=== PATIENT | male | born 1945 | race Caucasian/White ===

== ENCOUNTER 2023-03-13 11:29 | Emergency (ER) | payer BC, MEDICARE ==
[2023-03-13 12:16] LABS: #Eosinphils 0.2 thou/uL (0.0-0.7); #Monocytes 0.5 thou/uL (0.11-0.59); #Neutrophils 2.9 thou/uL (1.40-6.50); %Basophils 0.6 % (0.0-1.0); %Eosinophils 4.7 % (0.0-10.0); %Lymphocytes 29.1 % (21.0-51.0); %Neutrophils 56.4 % (42.0-75.0); Hematocrit 43.2 % (42.0-52.0); Hemoglobin 14.9 g/dL (14.0-18.0); Mean Corpuscular HGB CONC 34.5 g/dL (32.0-36.0); Mean Corpuscular Hemoglobin 31.9 pg (27.0-31.0); Mean Corpuscular Volume 92.5 fl (78.0-98.0); Mean Platelet Volume 9.3 fL (7.4-10.4); Platelet Count 190 10x3/uL (130-400); RBC Distribution Width 12.9 % (11.5-14.5); Red Blood Cell (RBC) Count 4.67 mill/uL (4.70-6.10); White Blood Cell (WBC) Count 5.1 10x3/uL (4.8-10.8)
[2023-03-13 12:44] LABS: Troponin I Less than 0.010 ng/mL (< 0.028)
[2023-03-13 12:48] LABS: ALT (SGPT) 12 U/L (8-55); AST (SGOT) 22 U/L (5-34); Albumin 4.1 g/dL (3.4-4.8); Alkaline Phosphatase 57 U/L (40-110); Anion Gap 13 mmol/L (10-20); BUN (Urea Nitrogen) 14 mg/dL (8.4-25.7); Bilirubin, Total 0.4 mg/dL (0.2-1.2); Calc. Creatinine Clearance 0 mL/min (70-130); Calcium 9.2 mg/dL (7.8-10.44); Carbon Dioxide 25 mmol/L (23-31); Chloride 104 mmol/L (98-107); Estimated GFR 74; Glucose 100 mg/dL (83-110); Potassium 4.4 mmol/L (3.5-5.1); Protein, Total 7.1 g/dL (5.8-8.1); Sodium 138 mmol/L (136-145)
== END 2023-03-13 13:50 | disposition home or self-care (01) ==
LOC: ERS 11:29
DX: R07.9 Chest pain, unspecified (principal)
CPT/HCPCS: 71046; 80053; 84484; 85025; 85379; 93005

== ENCOUNTER 2023-04-19 11:43 | Inpatient (IN) | payer BC, MEDICARE ==
[2023-04-22] MEDS ORDERED: PHENYLEPHRINE-NS 100 MCG/ML 10 ML SYRINGE ONE (06:40)
[2023-04-22] MEDS ORDERED: Bupivacaine PF 0.5% 30 ML VIAL ONE (06:40)
[2023-04-22] MEDS ORDERED: Dexamethasone 4 mg/ml Vial ONE (06:40)
[2023-04-22] MEDS ORDERED: Albumin 5% 500 ML ONE (06:40)
[2023-04-22] MEDS ORDERED: EPINEPHrine 1 MG/ML AMP ONE (06:40)
[2023-04-22] MEDS ORDERED: Fentanyl 250 MCG/5 ML VIAL ONE (06:42)
[2023-04-22] MEDS ORDERED: Midazolam HCl 2 mg/2 ml Vial ONE ×2 (06:42)
[2023-04-22] MEDS ORDERED: Rocuronium Bromide 50 MG/5 ML VIAL ONE (06:43)
[2023-04-22] MEDS ORDERED: Aminocaproic Acid 5 GM/20 ML VIAL ONE ×2 (06:43→07:41)
[2023-04-22] MEDS ORDERED: Vasopressin 20 UNITS/ML VIAL ONE (06:43)
[2023-04-22] MEDS ORDERED: Insulin Regular 300 UNITS/3 ML VIAL ONE (06:43)
[2023-04-22] MEDS ORDERED: Norepinephrine 4 MG/4 ML VIAL ONE (06:43)
[2023-04-22] MEDS ORDERED: Heparin 10,000 UNITS/1 ML VIAL 30,000 UNITS in Sodium Chloride 0.9% 1,000 ML FS SCH (07:00)
[2023-04-22] MEDS ORDERED: Clindamycin/D5W 600 mg/50 ml Premix Bag ONE (07:08)
[2023-04-22] MEDS ORDERED: Vancomycin 1 GM/200 ML (FROZEN) BAG ONE (07:08)
[2023-04-22] MEDS ORDERED: Sodium Chloride 0.9% 100 ML ONE (07:28)
[2023-04-22] MEDS ORDERED: CEFAZOLIN 2 GM VIAL ONE (07:28)
[2023-04-22] MEDS ORDERED: PROPOFOL 200 MG/20 ML VIAL ONE (07:41)
[2023-04-22] MEDS ORDERED: Magnesium 5 GM/10 ML VIAL ONE (07:41)
[2023-04-22] MEDS ORDERED: Protamine Sulfate 250 MG/25 ML VIAL ONE (07:41)
[2023-04-22] MEDS ORDERED: Heparin 5,000 UNITS/ML VIAL ONE (07:41)
[2023-04-22] MEDS ORDERED: Rocuronium Bromide 10 MG/ML (10ML VIAL) ONE (07:41)
[2023-04-22] MEDS ORDERED: Heparin 30,000 units/30 ml VIAL ONE (07:41)
[2023-04-22] MEDS ORDERED: Cardioplegic Soln 1,000 ML BAG ONE (07:41)
[2023-04-22] MEDS ORDERED: Potassium Chloride 60 MEQ/30 ML VIAL ONE (07:41)
[2023-04-22] MEDS ORDERED: Lidocaine 1% PF 5 ML VIAL ONE (07:41)
[2023-04-22] MEDS ORDERED: Sodium Bicarb 50 MEQ/50 ML VIAL ONE (07:41)
[2023-04-22] MEDS ORDERED: Mannitol 12.5 GM/50 ML ONE (07:41)
[2023-04-22] MEDS ORDERED: Lidocaine 2% PF 100 mg/5 ml Syringe ONE (07:41)
[2023-04-22] MEDS ORDERED: Thrombin 5000 UNITS/5 ML VIAL ONE (07:41)
[2023-04-22] MEDS ORDERED: Papaverine 60 MG/2 ML VIAL ONE (07:41)
[2023-04-22] MEDS ORDERED: Vancomycin 1 GM VIAL ONE (07:41)
[2023-04-22] MEDS ORDERED: Calcium Chloride 1 GM/10 ML Abboject SYRINGE ONE (07:41)
[2023-04-22] MEDS ORDERED: Isoflurane INH ANEST 100 ML BOTTLE ONE (08:20)
[2023-04-22] MEDS ORDERED: traMADol HCl 50 MG TAB PO PRN (10:21)
[2023-04-22] MEDS ORDERED: Morphine 2 MG/ML VIAL SLOW IVP PRN (10:21)
[2023-04-22] MEDS ORDERED: fentaNYL 50 mcg/mL 1 mL Vial SLOW IVP PRN (10:21)
[2023-04-22] MEDS ORDERED: Nitroglycerin 50 MG/250 ML BOT 250 ML IVPB PRN (10:21)
[2023-04-22] MEDS ORDERED: hydrALAZINE 20 MG/ML VIAL SLOW IVP PRN (10:21)
[2023-04-22] MEDS ORDERED: Bisacodyl 5 MG TAB PO PRN (10:21)
[2023-04-22] MEDS ORDERED: Hetastarch 6% 500 ML 500 ML IVPB PRN (10:21)
[2023-04-22] MEDS ORDERED: Bisacodyl 10 MG SUPP PR PRN (10:21)
[2023-04-22] MEDS ORDERED: NOREPINEPHRINE 8 MG/250 ML-D5W 250 ML IVPB PRN (10:21)
[2023-04-22] MEDS ORDERED: Ipratropium/Albuterol 3 ML NEB NEB PRN (10:21)
[2023-04-22] MEDS ORDERED: Promethazine HCl 25 MG/ML VIAL IM PRN (10:21)
[2023-04-22] MEDS ORDERED: Guaifenesin DM 100-10/5 ML UDCUP PO PRN (10:21)
[2023-04-22] MEDS ORDERED: Dextrose 50% Abboject 50 ML SYRINGE SLOW IVP PRN (10:30)
[2023-04-22] MEDS ORDERED: D5 1/2 NS w/20 mEq KCL 1,000 ML IV SCH (10:30)
[2023-04-22] MEDS ORDERED: Magnesium 2 GM/50 ML(in water) 2 GM in Premix Bag 1 BAG IVPB SCH (10:30)
[2023-04-22] MEDS ORDERED: Dextrose 5% in Water 1,000 ML IV PRN (10:30)
[2023-04-22] MEDS ORDERED: HUMULIN R 100 UNITS in Sodium Chloride 0.9% 100 ML IVPB SCH (10:30)
[2023-04-22] MEDS ORDERED: Glucagon 1 MG/ML KIT SC PRN (10:30)
[2023-04-22 10:51] LABS: #Basophils 0.1 thou/uL (0.0-0.2); #Eosinphils 0.5 thou/uL (0.0-0.7); #Neutrophils 12.1 thou/uL (1.40-6.50); %Basophils 0.3 % (0.0-1.0); %Eosinophils 2.8 % (0.0-10.0); %Lymphocytes 16.9 % (21.0-51.0); %Neutrophils 72.1 % (42.0-75.0); Hematocrit 34.6 % (42.0-52.0); Mean Corpuscular HGB CONC 34.7 g/dL (32.0-36.0); Mean Corpuscular Hemoglobin 32.2 pg (27.0-31.0); Mean Corpuscular Volume 92.8 fl (78.0-98.0); Mean Platelet Volume 9.3 fL (7.4-10.4); Platelet Count 150 10x3/uL (130-400); RBC Distribution Width 12.9 % (11.5-14.5); Red Blood Cell (RBC) Count 3.73 mill/uL (4.70-6.10); White Blood Cell (WBC) Count 16.7 10x3/uL (4.8-10.8)
[2023-04-22 11:08] LABS: Base Excess (BEa) -5.4 mEq/L (-2.0 to +3.0); CO2 Tension 33.7 mmHg (35.0-45.0); Calcium, Ionized (arterial) 1.03 mmol/L (1.12-1.30); Carboxyhemoglobin (COHb) 0.2 gm% (0.0-3.0); Hematocrit-ABG 36 % (42.0-52.0); Hemoglobin (Hb) 12.3 g/dL (14.0-18.0); O2 Tension (PaO2), arterial 190.6 mmHg (> 70.0); Potassium - ABG Lab 3.34 mmol/L (3.70-5.30); pH, Arterial 7.369 (7.35-7.45)
[2023-04-22 11:10] LABS: INR-International Normal Ratio 1.6; Prothrombin Time 20.1 sec (12.0-14.7)
[2023-04-22 11:10] LABS: Puncture Site ALINE
[2023-04-22 11:11] LABS: ALV-art Gradient 123.775 mmHg (0-20)
[2023-04-22 11:11] LABS: PTT 35.7 sec (22.9-36.1)
[2023-04-22] MEDS: Ketorolac Tromethamine 30 MG/ML VIAL IVP SCH ×2 (11:23→17:40)
[2023-04-22] MEDS: Insulin Regular 300 UNITS/3 ML VIAL SC PRN ×3 (12:03→20:36)
[2023-04-22 12:19] LABS: Anion Gap 15 mmol/L (10-20); BUN (Urea Nitrogen) 15 mg/dL (8.4-25.7); Calc. Creatinine Clearance 66 mL/min (70-130); Calcium 7.4 mg/dL (7.8-10.44); Carbon Dioxide 19 mmol/L (23-31); Chloride 109 mmol/L (98-107); Estimated GFR 90; Glucose 171 mg/dL (83-110); Potassium 3.4 mmol/L (3.5-5.1); Sodium 140 mmol/L (136-145)
[2023-04-22] MEDS: Potassium Chloride 20 MEQ/100 ML PREMIX BAG IVPB PRN ×2 (12:27→17:36)
[2023-04-22] MEDS ORDERED: FLU VACC QS2023(65UP)/MF59C/PF 60 MCG/0.5 ML SYRINGE IM ONE (15:00)
[2023-04-22] MEDS: Ondansetron PF 4 MG/2 ML Vial IVP PRN (15:16)
[2023-04-22] MEDS: CEFAZOLIN 2 GM in Sodium Chloride 0.9% 100 ML IVPB SCH (15:22)
[2023-04-22 16:33] LABS: Actual Bicarbonate (HCO3a) 20.6 mEq/L (22-28); Base Excess (BEa) -5.3 mEq/L (-2.0 to +3.0); CO2 Tension 41.6 mmHg (35.0-45.0); Calcium, Ionized (arterial) 1.12 mmol/L (1.12-1.30); Carboxyhemoglobin (COHb) 0.1 gm% (0.0-3.0); Hematocrit-ABG 37 % (42.0-52.0); Hemoglobin (Hb) 12.6 g/dL (14.0-18.0); O2 Tension (PaO2), arterial 151.4 mmHg (> 70.0); Potassium - ABG Lab 3.62 mmol/L (3.70-5.30); pH, Arterial 7.312 (7.35-7.45)
[2023-04-22 16:36] LABS: Hemoglobin 12.2 g/dL (14.0-18.0)
[2023-04-22 16:44] LABS: Puncture Site ALINE
[2023-04-22 16:50] LABS: Potassium 3.5 mmol/L (3.5-5.1)
[2023-04-22] MEDS: Mag-Al 1200 mg/1200 mg/30 ML UDCUP PO PRN (17:39)
[2023-04-22] MEDS: Acetaminophen 325 MG TAB PO PRN (20:02)
[2023-04-22] MEDS: Atorvastatin Calcium 20 MG TAB PO SCH (20:02)
[2023-04-22] MEDS: Famotidine/PF 20 mg/2ml Vial SLOW IVP SCH (20:03)
[2023-04-22] MEDS: NS 0.9% w/ 20 MEQ KCL 1,000 ML IV SCH (21:13)
[2023-04-23] MEDS: Ketorolac Tromethamine 30 MG/ML VIAL IVP SCH ×4 (00:19→19:00)
[2023-04-23] MEDS: CEFAZOLIN 2 GM in Sodium Chloride 0.9% 100 ML IVPB SCH ×2 (00:22→07:29)
[2023-04-23] MEDS: fentaNYL 50 mcg/mL 1 mL Vial SLOW IVP PRN ×7 (02:27→19:55)
[2023-04-23] MEDS: traMADol HCl 50 MG TAB PO PRN (04:20)
[2023-04-23 04:34] LABS: #Monocytes 0.9 thou/uL (0.11-0.59); #Neutrophils 8.6 thou/uL (1.40-6.50); %Basophils 0.1 % (0.0-1.0); %Lymphocytes 8.8 % (21.0-51.0); %Monocytes 8.6 % (0.0-10.0); %Neutrophils 81.7 % (42.0-75.0); Hematocrit 28.6 % (42.0-52.0); Hemoglobin 9.7 g/dL (14.0-18.0); Mean Corpuscular HGB CONC 33.9 g/dL (32.0-36.0); Mean Corpuscular Hemoglobin 32.1 pg (27.0-31.0); Mean Corpuscular Volume 94.7 fl (78.0-98.0); Mean Platelet Volume 9.9 fL (7.4-10.4); Platelet Count 117 10x3/uL (130-400); RBC Distribution Width 13.2 % (11.5-14.5); Red Blood Cell (RBC) Count 3.02 mill/uL (4.70-6.10); White Blood Cell (WBC) Count 10.5 10x3/uL (4.8-10.8)
[2023-04-23 07:52] LABS: Anion Gap 7 mmol/L (10-20); BUN (Urea Nitrogen) 14 mg/dL (8.4-25.7); Calc. Creatinine Clearance 67 mL/min (70-130); Calcium 7.7 mg/dL (7.8-10.44); Carbon Dioxide 27 mmol/L (23-31); Chloride 107 mmol/L (98-107); Estimated GFR 90; Glucose 90 mg/dL (83-110); Potassium 4.2 mmol/L (3.5-5.1); Sodium 137 mmol/L (136-145)
[2023-04-23] MEDS: Famotidine/PF 20 mg/2ml Vial SLOW IVP SCH (09:28)
[2023-04-23] MEDS: Magnesium 2 GM/50 ML(in water) 2 GM in Premix Bag 1 BAG IVPB SCH (09:28)
[2023-04-23] MEDS: Aspirin 325 MG TAB PO SCH (09:28)
[2023-04-23] MEDS ORDERED: Insulin Glargine 30 UNITS/0.3 ML VIAL SC PRN (10:27)
[2023-04-23] MEDS ORDERED: DOPamine 400 MG/D5W 250 ML 250 ML ONE (11:01)
[2023-04-23] MEDS: Ondansetron PF 4 MG/2 ML Vial IVP PRN (11:19)
[2023-04-23] MEDS ORDERED: DOBUTamine 500 mg/250 ml 250 ML ONE (11:30)
[2023-04-23] MEDS ORDERED: DOPamine 400 MG/D5W 250 ML 250 ML IVPB SCH (11:30)
[2023-04-23] MEDS ORDERED: DOBUTamine 500 mg/250 ml 500 MG in Premix Bag 1 BAG IVPB SCH (11:45)
[2023-04-23] MEDS ORDERED: Sodium Chloride 0.9% 500 ML IV SCH (12:00)
[2023-04-23] MEDS ORDERED: Atropine Sulfate 1 mg/10 ml Syringe IVP SCH (12:15)
[2023-04-23] MEDS: Atorvastatin Calcium 20 MG TAB PO SCH (19:54)
[2023-04-23] MEDS: NS 0.9% w/ 20 MEQ KCL 1,000 ML IV SCH (21:28)
[2023-04-24] MEDS: Ketorolac Tromethamine 30 MG/ML VIAL IVP SCH ×5 (00:03→23:15)
[2023-04-24] MEDS: fentaNYL 50 mcg/mL 1 mL Vial SLOW IVP PRN ×4 (00:03→09:35)
[2023-04-24 04:53] LABS: #Monocytes 0.8 thou/uL (0.11-0.59); #Neutrophils 7.1 thou/uL (1.40-6.50); %Basophils 0.2 % (0.0-1.0); %Eosinophils 0.4 % (0.0-10.0); %Lymphocytes 13.5 % (21.0-51.0); %Monocytes 8.5 % (0.0-10.0); Hematocrit 30.4 % (42.0-52.0); Mean Corpuscular HGB CONC 32.9 g/dL (32.0-36.0); Mean Corpuscular Hemoglobin 31.3 pg (27.0-31.0); Mean Corpuscular Volume 95.3 fl (78.0-98.0); Mean Platelet Volume 9.7 fL (7.4-10.4); Platelet Count 119 10x3/uL (130-400); RBC Distribution Width 13.5 % (11.5-14.5); Red Blood Cell (RBC) Count 3.19 mill/uL (4.70-6.10); White Blood Cell (WBC) Count 9.2 10x3/uL (4.8-10.8)
[2023-04-24 05:30] LABS: Anion Gap 9 mmol/L (10-20); BUN (Urea Nitrogen) 23 mg/dL (8.4-25.7); Calc. Creatinine Clearance 63 mL/min (70-130); Calcium 8.2 mg/dL (7.8-10.44); Carbon Dioxide 27 mmol/L (23-31); Chloride 104 mmol/L (98-107); Estimated GFR 89; Glucose 123 mg/dL (83-110); Potassium 4.7 mmol/L (3.5-5.1); Sodium 135 mmol/L (136-145)
[2023-04-24] MEDS: Magnesium 2 GM/50 ML(in water) 2 GM in Premix Bag 1 BAG IVPB SCH (08:16)
[2023-04-24] MEDS: Aspirin 325 MG TAB PO SCH (08:16)
[2023-04-24] MEDS: Acetaminophen 325 MG TAB PO PRN ×2 (12:56→20:09)
[2023-04-24] MEDS: Mag-Al 1200 mg/1200 mg/30 ML UDCUP PO PRN (12:56)
[2023-04-24] MEDS: traMADol HCl 50 MG TAB PO PRN (16:36)
[2023-04-24] MEDS: Atorvastatin Calcium 20 MG TAB PO SCH (20:06)
[2023-04-24] MEDS: NS 0.9% w/ 20 MEQ KCL 1,000 ML IV SCH (23:23)
[2023-04-25 04:57] LABS: #Eosinphils 0.3 thou/uL (0.0-0.7); #Monocytes 0.5 thou/uL (0.11-0.59); #Neutrophils 5.2 thou/uL (1.40-6.50); %Basophils 0.3 % (0.0-1.0); %Eosinophils 3.6 % (0.0-10.0); %Lymphocytes 16.2 % (21.0-51.0); %Monocytes 7.4 % (0.0-10.0); %Neutrophils 72.2 % (42.0-75.0); Hematocrit 30.6 % (42.0-52.0); Hemoglobin 10.3 g/dL (14.0-18.0); Mean Corpuscular HGB CONC 33.7 g/dL (32.0-36.0); Mean Platelet Volume 9.2 fL (7.4-10.4); Platelet Count 126 10x3/uL (130-400); RBC Distribution Width 13.3 % (11.5-14.5); Red Blood Cell (RBC) Count 3.22 mill/uL (4.70-6.10); White Blood Cell (WBC) Count 7.2 10x3/uL (4.8-10.8)
[2023-04-25 05:20] LABS: Anion Gap 9 mmol/L (10-20); BUN (Urea Nitrogen) 23 mg/dL (8.4-25.7); Calc. Creatinine Clearance 71 mL/min (70-130); Carbon Dioxide 29 mmol/L (23-31); Chloride 102 mmol/L (98-107); Estimated GFR 92; Glucose 98 mg/dL (83-110); Potassium 4.4 mmol/L (3.5-5.1); Sodium 136 mmol/L (136-145)
[2023-04-25] MEDS: Ketorolac Tromethamine 30 MG/ML VIAL IVP SCH ×2 (06:16→11:00)
[2023-04-25] MEDS: Aspirin 325 MG TAB PO SCH (08:13)
[2023-04-25] MEDS: traMADol HCl 50 MG TAB PO PRN ×2 (08:15→20:06)
[2023-04-25] MEDS: Atorvastatin Calcium 20 MG TAB PO SCH (20:07)
[2023-04-26 05:22] LABS: #Eosinphils 0.3 thou/uL (0.0-0.7); #Monocytes 0.7 thou/uL (0.11-0.59); #Neutrophils 3.9 thou/uL (1.40-6.50); %Basophils 0.5 % (0.0-1.0); %Eosinophils 4.8 % (0.0-10.0); %Lymphocytes 17.4 % (21.0-51.0); %Monocytes 11.6 % (0.0-10.0); %Neutrophils 65.4 % (42.0-75.0); Hematocrit 32.9 % (42.0-52.0); Hemoglobin 11.1 g/dL (14.0-18.0); Mean Corpuscular HGB CONC 33.7 g/dL (32.0-36.0); Mean Corpuscular Hemoglobin 32.1 pg (27.0-31.0); Mean Corpuscular Volume 95.1 fl (78.0-98.0); Mean Platelet Volume 9.8 fL (7.4-10.4); Platelet Count 150 10x3/uL (130-400); RBC Distribution Width 13.2 % (11.5-14.5); Red Blood Cell (RBC) Count 3.46 mill/uL (4.70-6.10)
[2023-04-26 05:47] LABS: Anion Gap 8 mmol/L (10-20); BUN (Urea Nitrogen) 13 mg/dL (8.4-25.7); Calc. Creatinine Clearance 70 mL/min (70-130); Calcium 8.3 mg/dL (7.8-10.44); Carbon Dioxide 29 mmol/L (23-31); Chloride 99 mmol/L (98-107); Estimated GFR 91; Glucose 193 mg/dL (83-110); Potassium 3.9 mmol/L (3.5-5.1); Sodium 132 mmol/L (136-145)
[2023-04-26] MEDS: Aspirin 325 MG TAB PO SCH (07:57)
[2023-04-26] MEDS ORDERED: Artificial Tear Sol 15 ML BOT EA EYE PRN (10:46)
[2023-04-26] MEDS ORDERED: Mag-Al 1200 mg/1200 mg/30 ML UDCUP PO PRN (10:46)
[2023-04-26] MEDS ORDERED: Bisacodyl 10 MG SUPP PR PRN (10:46)
[2023-04-26] MEDS ORDERED: Mineral Oil ENEMA PR PRN (10:46)
[2023-04-26] MEDS ORDERED: Bisacodyl 5 MG TAB PO PRN (10:46)
[2023-04-26] MEDS ORDERED: Guaifenesin DM 100-10/5 ML UDCUP PO PRN (10:46)
[2023-04-26] MEDS ORDERED: Nitroglycerin 0.4 MG TAB (25 Tab Bottle) SL PRN (10:46)
[2023-04-26] MEDS ORDERED: Zolpidem Tartrate 5 MG TAB PO PRN (10:46)
[2023-04-26] MEDS ORDERED: Milk Of Magnesia 30 ML UDCUP PO PRN (10:46)
[2023-04-26] MEDS: Atorvastatin Calcium 20 MG TAB PO SCH (20:17)
[2023-04-27] MEDS: Carvedilol 3.125 MG TAB PO SCH ×2 (08:35→17:00)
[2023-04-27] MEDS: Aspirin 325 MG TAB PO SCH (08:35)
[2023-04-27 21:47] VITALS: BMI 20.2
[2023-04-28] MEDS: Acetaminophen 325 MG TAB PO PRN (01:35)
[2023-04-28] MEDS: diphenhydrAMINE 25 MG CAP PO PRN (01:37)
[2023-04-28] MEDS: metroNIDAZOLE 500 MG TAB PO SCH ×3 (09:51→20:51)
[2023-04-28] MEDS: Aspirin 81 mg Enteric Coated Tablet PO SCH (09:51)
[2023-04-28] MEDS ORDERED: Metoprolol Tartrate 25 MG TAB PO SCH (17:30)
[2023-04-29] MEDS: Acetaminophen 325 MG TAB PO PRN ×2 (05:14→12:26)
[2023-04-29] MEDS: metroNIDAZOLE 500 MG TAB PO SCH ×3 (08:09→21:40)
[2023-04-29] MEDS: Aspirin 81 mg Enteric Coated Tablet PO SCH (08:09)
[2023-04-29] MEDS: Metoprolol Tartrate 25 MG TAB PO SCH ×3 (08:10→21:40)
[2023-04-29] MEDS: Ondansetron PF 4 MG/2 ML Vial IVP PRN (15:44)
[2023-04-29] MEDS: diphenhydrAMINE 25 MG CAP PO PRN (21:40)
[2023-04-30] MEDS: Aspirin 81 mg Enteric Coated Tablet PO SCH (08:02)
[2023-04-30] MEDS: metroNIDAZOLE 500 MG TAB PO SCH ×3 (08:02→21:29)
[2023-04-30] MEDS: Metoprolol Tartrate 25 MG TAB PO SCH ×2 (10:07→21:30)
[2023-04-30] MEDS: diphenhydrAMINE 25 MG CAP PO PRN (21:30)
[2023-05-01 08:32] VITALS: TEMP 97.8
[2023-05-01] MEDS: Aspirin 81 mg Enteric Coated Tablet PO SCH (09:39)
[2023-05-01] MEDS: metroNIDAZOLE 500 MG TAB PO SCH (09:39)
[2023-05-01 10:40] VITALS: BP 105/64
[2023-05-01] MEDS ORDERED: Atorvastatin Calcium 20 MG TAB PO SCH (21:00)
== END 2023-05-01 13:00 | disposition home or self-care (01) | DRG 236 ==
LOC: SURG A 04-22 06:13 → CCU 04-22 10:52 → 2NO 04-29 18:58
PROVIDERS: ADMIT Thoracic Surgery (Cardiothoracic Vascular Surgery); ATTEND Thoracic Surgery (Cardiothoracic Vascular Surgery)
PROC: 02100Z9 Bypass Coronary Artery, One Artery from Left Internal Mammary, Open Approach (ICD-10-PCS; principal; 2023-04-22)
PROC: 021109W Bypass Coronary Artery, Two Arteries from Aorta with Autologous Venous Tissue, Open Approach (ICD-10-PCS; 2023-04-22)
PROC: 06BP4ZZ Excision of Right Saphenous Vein, Percutaneous Endoscopic Approach (ICD-10-PCS; 2023-04-22)
PROC: 5A1221Z Performance of Cardiac Output, Continuous (ICD-10-PCS; 2023-04-22)
PROC: 4A133R1 Monitoring of Arterial Saturation, Peripheral, Percutaneous Approach (ICD-10-PCS; 2023-04-22)
PROC: 3E033XZ Introduction of Vasopressor into Peripheral Vein, Percutaneous Approach (ICD-10-PCS; 2023-04-22)
PROC: 0W9930Z Drainage of Right Pleural Cavity with Drainage Device, Percutaneous Approach (ICD-10-PCS; 2023-04-23)
DX: I25.118 Atherosclerotic heart disease of native coronary artery with other forms of angina pectoris (principal); J95.811 Postprocedural pneumothorax; R00.0 Tachycardia, unspecified; I95.9 Hypotension, unspecified; I10 Essential (primary) hypertension; E78.5 Hyperlipidemia, unspecified; Z88.0 Allergy status to penicillin; Z79.899 Other long term (current) drug therapy; Z79.82 Long term (current) use of aspirin
CPT/HCPCS: 36416; 71045; 71046; 80048; 82805; 85025; 85610; 85730; 86850; 86900; 86901; 93005; 93010; 93306; 93798; 94002; 94150; A4311; C1751; J0171; J1100; J1250; J1265; J1642; J1644; J1815; J1885; J2001; J2150; J2250; J2405; J2440; J2704; J2720; J3010; J3370; J3370-JW; J3475; J3480; J3490; P9045; S0017; S0020; S0028